=== PATIENT | male | born 2005 | race Caucasian/White ===

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

== ENCOUNTER 2025-04-23 07:29 | Outpatient (CLI) | payer OTHER, SELFPAY ==
--- OUTSIDE RECORDS SUMMARY | 2024-09-27 12:00 | XMS_ITS ---
Author Organization [facility] Address [address] [place] [id number] Care Team Providers Care Nanofabrication Specialist Name Role Phone Robert Hoang Primary Care Provider Margie Martinez Unavailable [phone] Allergies No Known Allergies Results Component Value Reference Range Notes Influenza Screen (in house) Reviewed date:09/27/2024 05:01:37 PM Interpretation: Performing Lab: Notes/Report: results Neg Rapid Strep- Inhouse Reviewed date:09/27/2024 05:01:37 PM Interpretation: Performing Lab: Notes/Report: strep test Neg CBC Fingerstick (in house) Reviewed date:09/27/2024 05:01:37 PM Interpretation: Performing Lab: Notes/Report: wbc 14.7 3.5 - 10 lym 6.7% 15 - 50 mid 8.0% 2 - 15 gran 85.3% 35 - 80 rbc 4.99 3.5 - 5.5 hgb 16.1 11.5 - 16.5 hct 45.9 35 - 55 mcv 92.0 75 - 100 mch 32.3 25 - 35 mchc 35.1 31 - 38 plat 199 100 - 400 Covid test (in house) Reviewed date:09/27/2024 05:01:37 PM Interpretation: Performing Lab: Notes/Report: Result: Neg REASON FOR VISIT fever,chills and aches Medications Medication SIG (Take, Route, Fr equency, Duration) Notes Start Date End Date Status Zithromax Z-Jatinder 250 MG 2 pills first day then one daily for 4 days orally as directed for 5 days 09/27/2024 Active Vital Signs Blood pressure systolic 104 mm Hg 09/27/20 24 Blood pressure diastolic 68 mm Hg 024 Heart Rate 139 /min 09/27/2024 Height 67.50 in 09/27/2024 Weight 148.0 lbs 09/27/2024 BMI 22.84 kg/m2 09/27/2024 Encounters Encounter Location Date Provider Diagnosis [facility] [address] [place], [place] [id number] 09/27/2024 Margie Martinez Acute pharyngitis du e to other specified organisms J02.8 and Other specified bacterial agents as the cause of diseases classified elsewhere B96.89 Assessments Encounter Date Diagnosis (ICD Code) Assessment Notes Treatment Notes Treatment Clinical Notes Section Notes 09/27/2024 Acute pharyngitis due to other specified organisms (ICD-10 - J02.8) Rest, Fluids, tylenol or motrin for fever, gargle with warm water or salt water, throw away toothbrush after a few days on the antibiotic 09/27/2024 Other specified bacterial agents as the cause of diseases classified elsewhere (ICD-10 - B96.89) Rest, Fluids, tylenol or motrin for fever, gargle with warm water or salt water, throw away toothbrush after a few days on the antibiotic Plan Of Treatment Medication Medication Name Sig Start Date Stop Date Notes Zithromax Z-Jatinder 250 MG 2 pills first day then one daily for 4 days orally as directed for 5 days 09/27/2024 Treatment Notes Assessment Notes Acute pharyngitis due to oth er specified organisms Rest, Fluids, tylenol or motrin for feve r, gargle with warm water or salt water, throw away toothbrush after a few days on the antibiotic Other specified bacterial ag ents as the cause of diseases classified elsewhere Rest, Fluids, tylenol or motrin for fever, gargle with warm water or salt water, throw away toothbrush after a few days on the antibiotic Next Appt Details Follow Up: prn, Reason: Progress Notes * Zaire THORNTONOB:2005 (19 yo M)Acc No.[id number]:09/27/2024 Progress Notes Patient: Tisha BONILLA Provider: AMBER Norwood :2005 A ge:19 Y S ex:Male Date:09/27/2024 Address:[address] [place] [id number] Pcp:Robetr Hoang Subjective: * Chief Complaints: * 1 . Fever,chills and aches. * HPI: E NT/respiratory: The patient is here today with c/o fever, chills and body aches since yesterday. Pt's mom states the pt had fever yesterday at 103.7. Taking Tylenol and Ibuprofen alternately it did come down to 100 but went back up to 102. Mom states coming into the office the pt c/o some chest pain. 19 year old male presents with c/o sore throat. c/o Fever. c/o Chest Pain. c/o body aches. * ROS: D ERMATOLOGY: no R bel. n o H gertrudis. G ASTROENTEROLOGY: no N ausea. n o V omiting. n o D iarrhea.? U ROLOGY: no D ifficulty urinating. n o B lood in urine. * Medical History: M edical History Verified. * Surgical History: C ircumcision . * Family History: F ather: alive 30 yrs. M other: alive 29 yrs. 1 brother(s) , 1 sister(s) . . * Social History: C URRENT TOBACCO USE: No . H ome smoke detector use: yes. Marital Status: Single. * Medications: D iscontinued Meclizine HCl 25 MG Tablet 1 tab(s) orally 3 times a day , Discontinued Flonase Allergy Relief 50 MCG/ACT Suspension 1 spray(s) in each nostril once a day , Medication List reviewed and reconciled with the patient * Allergies: N .K.D.A. Objective: * Vitals: W t:148.0, Temp:102.3, BP:104/68, HR:139, Nurse:BELKYS, Ht: 67.50, BMI:22.84. * Examination: E NT/Respiratory: General Appearance: Does not appear to feel well. Ears: a uditory canals normal bilaterally, TM's WNL. Nose : n ormal, no lesions, nares patent. Sinuses : non tender bilaterally. Oral cavity : erythema without exudate on pharynx. Neck : supple, bilateral tender lymphadenopathy. Heart : R RR, normal S1 S2, no murmurs. Lungs: c lear to auscultation bilaterally. Assessment: * Assessment: 1. A cute pharyngitis due to other specified organisms - J02.8 (Primary) 2 .?Other specified bacterial agents as the cause of diseases classified elsewhere - B96.89 ? Plan: * Treatment: Value Reference Range s trep test Neg * Liza Lopez 09/27/2024 4:29:2 9 PM > , Provider reviewed results while patient in office. ?LAB: Covid test (in house) (Collection Date & Time - 09/27/2024)* Value Reference Range R esult: Neg * Liza Lopez 09/27/2024 4:29:4 5 PM > , Provider reviewed results while patient in office. Notes: Rest, Fluids, tylenol or motrin for fever, gargle with warm water or salt water, throw away toothbrush after a few days on the antibiotic??2.?Other specified bacterial agents as the cause of diseases classified elsewhere? Start Zithromax Z-Jatinder Tablet, 250 MG, 2 pills first day then one daily for 4 days, orally, as directed, 5 days, 1, Refills 0.?LAB: Influenza Screen (in house) (Collection Date & Time - 09/27/2024)* Value Reference Range r esults Neg * Liza Lopez 09/27/2024 4:30:0 2 PM > , Provider reviewed results while patient in office. ?LAB: CBC Fingerstick (in house) (Collection Date & Time - 09/27/2024)* Value Reference Range w bc 14.7 3.5 - 10 * l ym 6.7% 15 - 50 * m id 8.0% 2 - 15 * g ran 85.3% 35 - 80 * r bc 4.99 3.5 - 5.5 * h gb 16.1 11.5 - 16.5 * h ct 45.9 35 - 55 * m cv 92.0 75 - 100 * m ch 32.3 25 - 35 * m chc 35.1 31 - 38 * p lat 199 100 - 400 * Liza Lopez 09/27/2024 4:29:0 9 PM > , Provider reviewed results while patient in office. Notes: Rest, Fluids, tylenol or motrin for fever, gargle with warm water or salt water, throw away toothbrush after a few days on the antibiotic?? * Procedure Codes: 8 7804 Flu Test- Nasal Swab, Modifiers: QW , 71021 STREP A ASSAY W/OPTIC, Modifiers: QW , 50963 COVID TEST IN HOUSE, Modifiers: QW , 00021 CAPILLARY BLOOD DRAW, 17289 CBC WITH AUTO DIFF * Follow Up: p rn * Billing Information: * Visit Code: 88622 Office Visit, Est Pt., Level 3. * Procedure Codes: 95161 Flu Test- Nasal Swab. Modifiers: QW 22478 STREP A ASSAY W/OPTIC. Modifiers: QW 65962 COVID TEST IN HOUSE. Modifiers: QW 15258 CAPILLARY BLOOD DRAW. 66006 CBC WITH AUTO DIFF. * Electronic signature of AMBER Wells on 04/23/2025 at 07:31 AM EDT Sign off status: Pending * Provider: AMBER [place] Date: 11/27/2023 Generated for Kay brooks/Dante/eTransmitting on: 0 04/23/2025 07:31 AM EDT History and Physical Notes * HPI (History of Present Illness) Category Sub-Category Detail Notes Category Not es ENT/respiratory sore throat Chest Pain Fever body aches Examination Category Sub-Category Detail Notes Category Not es ENT/Respiratory Oral cavity : erythema without exudate on pharynx Sinuses : non tender bilateral ly Ears: auditory canals norm al bilaterally, TM's WNL Neck : supple, bilateral te nder lymphadenopathy Heart : RRR, normal S1 S2, n o murmurs Lungs: clear to auscultatio n bilaterally General Appearance: Does not appear to f eel well Nose : normal, no lesions, nares patent
--- OUTSIDE RECORDS SUMMARY | 2024-09-29 10:15 | XMS_ITS ---
Author Organization [facility] Address [address] [place] [id number] Care Team Providers Care Material Control Specialist Name Role Phone Robert Hoang Primary Care Provider [phone] Margie Martinez Unavailable [phone] Allergies No Known Allergies Results Component Value Reference Range Notes CBC Fingerstick (in house) Reviewed date:10/02/2024 02:34:04 PM Interpretation: Performing Lab: Notes/Report: wbc 10.5 3.5 - 10 lym 13.8% 15 - 50 mid 3.4% 2 - 15 gran 82.8% 35 - 80 rbc 4.96 3.5 - 5.5 hgb 15.8 11.5 - 16.5 hct 46.0 35 - 55 mcv 92.9 75 - 100 mch 31.9 25 - 35 mchc 34.4 31 - 38 plat 171 100 - 400 P-Culture, Throat Reviewed date:03/08/2025 01:22:56 PM Interpretation:not performed Performing Lab: Notes/Report: not performed REASON FOR VISIT Not feeling any better Medications Medication SIG (Take, Route, Fr equency, Duration) Notes Start Date End Date Status Cefdinir 300 MG 1 cap(s) Orally Two times a day for 7 days 09/29/2024 Active Zithromax Z-Jatinder 250 MG 2 pills first day then one daily for 4 days orally as directed for 5 days 09/27/2024 Active Vital Signs Blood pressure systolic 128 mm Hg 09/29/20 24 Blood pressure diastolic 70 mm Hg 024 Heart Rate 144 /min 09/29/2024 Height 67.50 in 09/29/2024 Weight 150.0 lbs 09/29/2024 BMI 23.14 kg/m2 09/29/2024 Encounters Encounter Location Date Provider Diagnosis [facility] [address] [facility] [address] [place] [id number] 09/29/2024 Margie Martinez Acute pharyngitis du e to other specified organisms J02.8 and Other specified bacterial agents as the cause of diseases classified elsewhere B96.89 Assessments Encounter Date Diagnosis (ICD Code) Assessment Notes Treatment Notes Treatment Clinical Notes Section Notes 09/29/2024 Acute pharyngitis due to other specified organisms (ICD-10 - J02.8) CBC has improved on zithromax. Discussed with Dr. Barboza. Will add cefdinir and get a throat culture. 09/29/2024 Other specified bacterial agents as the cause of diseases classified elsewhere (ICD-10 - B96.89) Plan Of Treatment Medication Medication Name Sig Start Date Stop Date Notes Cefdinir 300 MG 1 cap(s) Orally Two times a day for 7 days 09/29/2024 Treatment Notes Assessment Notes Acute pharyngitis due to oth er specified organisms CBC has improved on zithromax. Discussed with Dr. Barboza. Will add cefdinir and get a throat culture. Next Appt Details Follow Up: via phone to repo rt test results, Reason: Progress Notes * DIONNEVic MORRISvenuonDOB:2005 (19 yo M)Acc No.[id number]:09/29/2024 Progress Notes Patient: Tisha BONILLA Provider: AMBER Norwood :2005 A ge:19 Y S ex:Male Date:09/29/2024 [id number] Pcp:Robert Hoang Subjective: * Chief Complaints: * 1 . Not feeling any better. * HPI: E NT/respiratory: The patient is here today with c/o continued sore throat and fever. Mom states she is giving Ibuprofen and Tylenol and the fever just goes back up. 19 year old male presents with c/o sore throat. c/o Fever. * ROS: D ERMATOLOGY: no R bel. [...] use: yes. Marital Status: Single. * Medications: T aking Zithromax Z-Jatinder 250 MG Tablet 2 pills first day then one daily for 4 days orally as directed , Medication List reviewed and reconciled with the patient * Allergies: N .K.D.A. Objective: * Vitals: W t:150.0, Temp:101.7, BP:128/70, HR:144, Nurse:BELKYS, Ht: 67.50, BMI:23.14. * Examination: E NT/Respiratory: General Appearance: Does not appear to feel well. Ears: a uditory canals normal bilaterally, TM's WNL. Nose : n ormal, no lesions, nares patent. Sinuses : non tender bilaterally. Oral cavity : e rythema without exudate on pharynx, erythema on tonsils, no exudate. Neck : supple, bilateral tender lymphadenopathy. Heart : R RR, normal S1 S2, no murmurs. Lungs: c lear to auscultation bilaterally. Assessment: * Assessment: 1. A cute pharyngitis due to other specified organisms - J02.8 (Primary) 2 .?Other specified bacterial agents as the cause of diseases classified elsewhere - B96.89 ? Plan: * Treatment: 2. O ther specified bacterial agents as the cause of diseases classified elsewhere L AB: CBC Fingerstick (in house) (Collection Date & Time - 09/29/2024) Value Reference Range w bc 10.5 3.5 - 10 * l ym 13.8% 15 - 50 * m id 3.4% 2 - 15 * g ran 82.8% 35 - 80 * r bc 4.96 3.5 - 5.5 * h gb 15.8 11.5 - 16.5 * h ct 46.0 35 - 55 * m cv 92.9 75 - 100 * m ch 31.9 25 - 35 * m chc 34.4 31 - 38 * p lat 171 100 - 400 * Ronda Curran 09/29/2024 2: 22:23 PM > , Provider reviewed results while patient in office. * Procedure Codes: 3 6416 CAPILLARY BLOOD DRAW, 78276 CBC WITH AUTO DIFF * Follow Up: v ia phone to report test results * Billing Information: * Visit Code: 59925 Office Visit, Est Pt., Level 3. * Procedure Codes: 68041 CAPILLARY BLOOD DRAW. 32509 CBC WITH AUTO DIFF. * Electronic signature of AMBER Wells on 04/23/2025 at 07:31 AM EDT Sign off status: Pending * Provider: AMBER Norwood Date: 1 11/29/2023 Generated for [place] ng/Faclaudiag/eTransmitting on: 0 04/23/2025 07:31 AM EDT History and Physical Notes * HPI (History of Present Illness) Category Sub-Category Detail Notes Category Not es ENT/respiratory sore throat Fever Examination Category Sub-Category Detail Notes Category Not es ENT/Respiratory Oral cavity : erythema without exudate on pharynx, erythema on tonsils, no exudate Sinuses : non tender bilateral ly Ears: auditory canals norm al bilaterally, TM's WNL Neck : supple, bilateral te nder lymphadenopathy Heart : RRR, normal S1 S2, n o murmurs Lungs: clear to auscultatio n bilaterally General Appearance: Does not appear to f eel well Nose : normal, no lesions, nares patent
--- NOTE | 2025-04-23 | XR_ITS ---
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 No fracture is identified. The sinuses are clear. No foreign body is identified. IMPRESSION: No acute process. Reviewed, Interpreted and Dictated by Atilio Hyatt MD Transcribed by Kitty Wallace Authenticated and [facility]
--- NOTE | 2025-04-23 07:30 | MR_ITS ---
FINAL REPORT CLINICAL HISTORY: r/o acoustic neuroma, bilateral ear pain, dizzy FINDINGS: Multiplanar MR imaging of the brain was performed without and with contrast. There is mild cerebellar tonsillar ectopia measuring 8 mm without evidence of Chiari malformation. There are a few tiny, scattered foci of abnormal increased signal in the posterior parietal lobes, abnormal for patient age. This is best seen on images 15-17 of series 6. There is no evidence of intracranial hemorrhage or mass. No abnormal extra-axial fluid collection is seen. The ventricular size is within normal limits. There is no evidence of shift of the midline structures. The posterior fossa and brainstem have an unremarkable appearance. No area of abnormal restricted diffusion is identified. No abnormal contrast enhancement is seen. 7th and 8th nerve root complexes are intact. Lobular mucoperiosteal thickening is seen of the left maxillary sinus. There are no air-fluid levels. Normal major vessel vascular flow voids are noted. IMPRESSION: 1. No evidence of acoustic neuroma. 2. 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 3. Deep white matter signal abnormalities, abnormal for patient's age which are nonspecific. Cannot exclude underlying demyelinating process. Reviewed, Interpreted and Dictated by Atilio Hyatt MD Transcribed by Kitty Wallace Authenticated and [facility]
--- OUTSIDE RECORDS SUMMARY | 2025-04-23 07:32 | XMS_ITS | Patient Health Record ---
Author Organization [facility] Address [address] [place] [id number] Care Team Providers Care Spice Mixer Name Role Phone Robert Hoang Primary Care Provider Margie Martinez Unavailable [phone] Allergies No Known Allergies Results Component Value [...] PM Interpretation: Performing Lab: Notes/Report: Result: Neg CBC Fingerstick (in house) Reviewed date:10/02/2024 02:34:04 [...] Interpretation:not performed Performing Lab: Notes/Report: not performed Reason For Referral No Information Medications Medication SIG (Take, Route, Fr equency, Duration) Notes Start Date End Date Status Cefdinir 300 MG 1 cap(s) Orally Two times a day for 7 days 09/29/2024 Active Zithromax Z-Jatinder 250 MG 2 pills first day then one daily for 4 days orally as directed for 5 days 09/27/2024 Active Immunizations Vaccine Route Administration Date Status Comme nts Varivax SC Subcutaneous 06/08/2016 Administered Tetanus Tdap-Adacel (over 7yrs) IM Intramuscular 06/08/2016 Administered PREVNAR Unknown 2005 Administered PREVNAR Unknown 2005 Administered PREVNAR Unknown 05/25/2006 Administered pediarix Unknown 2005 Administered MMR Unknown 07/10/2009 Administered Menactra IM Intramuscular 06/08/2016 Administered IPV Unknown 2005 Administered IPV Unknown 05/25/2006 Administered IPV Unknown 07/10/2009 Administered HIB Unknown 2005 Administered HIB Unknown 2005 Administered Hep A- Pediatric Unknown 01/31/2007 Administered Problems Problem Type SNOMED Code ICD Code Onset Dates Problem Status W/U Status Risk Notes Problem 82071099 Other viral warts (B07.8) Active confirmed Problem 868522811 Encounter for routine child health examination without abnormal findings (Z00.129) Active confirmed Vital Signs Heart Rate 144 /min 09/29/2024 Blood pressure diastolic 70 mm Hg 09/29/2024 Height 67.50 in 09/29/2024 Blood pressure systolic 128 mm Hg 09/29/2024 Weight 150.0 lbs 09/29/2024 BMI 23.14 kg/m2 09/29/2024 Encounters Encounter Location Date Provider Diagnosis [facility] [address] [facility] [address] [place] [id number] 09/27/2024 Margie Martinez Acute pharyngitis du e to other specified organisms J02.8 and Other specified bacterial agents as the cause of diseases classified elsewhere B96.89 [facility] [address] [facility] [address] [facility] [address] [place] [id number] 09/29/2024 Margie Martinez Acute pharyngitis du e to other specified organisms J02.8 and Other specified bacterial agents as the cause of diseases classified elsewhere B96.89 [facility] [address] [facility] [address] [facility] [address] [place] [id number] 09/29/2024 Margie Martinez Assessments Encounter Date Diagnosis (ICD Code) Assessment Notes Treatment Notes Treatment Clinical Notes Section Notes 09/29/2024 Other specified bacterial agents as the cause of diseases classified elsewhere (ICD-10 - B96.89) 09/29/2024 Acute pharyngitis due to other specified organisms (ICD-10 - J02.8) CBC has improved on zithromax. Discussed with Dr. Barboza. Will add cefdinir and get a throat culture. 09/27/2024 Other specified bacterial agents as the cause of diseases classified elsewhere (ICD-10 - B96.89) Rest, Fluids, tylenol or motrin for fever, gargle with warm water or salt water, throw away toothbrush after a few days on the antibiotic 09/27/2024 Acute pharyngitis due to other specified organisms (ICD-10 - J02.8) Rest, Fluids, tylenol or motrin for fever, gargle with warm water or salt water, throw away toothbrush after a few days on the antibiotic Plan Of Treatment No Information Insurance Providers Payer Name Payer Address Payer Phone Subscriber Number Group Number Insured Name Patient Relationship to Insured Coverage Start Date Coverage End Date [facility] [address] [address] [place] [phone] [id number] Tisha Delgado Self - patient is the insured Medical (General) History Surgical History Surgery Date(Month/Year) Circumcision Hospitalization History Reason Date(Month/Year)
[2025-04-23] MEDS: SODIUM CHLORIDE 0.9% 10ML SYR (RAD ONLY) 10 ML IV (09:10)
[2025-04-23] MEDS: GADOTERIDOL INJ 20ML SYRINGE 14 ML IV (09:10)
== END 2025-04-23 23:59 | disposition home or self-care (01) ==
PROVIDERS: PCP Family Medicine; Visit Provider Nurse Practitioner
DX: R90.82 White matter disease, unspecified (principal); Q04.8 Other specified congenital malformations of brain
CPT/HCPCS: 70200; 70553; A9576